=== PATIENT | female | born 1965 | race Caucasian/White ===

== ENCOUNTER 2016-05-05 14:47 | Inpatient (IN) | payer MEDICARE, OTHER ==
[~2016-05-05] VITALS: Ht 170.2 cm; Wt 93.0 kg
[2016-05-05 18:30] LABS: HEMOGLOBIN 8.4 gm/dl (12.3-15.3); RED BLOOD COUNT 3.04 M/UL (4.00-5.10); WHITE BLOOD COUNT 5.9 K/UL (4.5-11.0)
[2016-05-06] MEDS ORDERED: WELLBUTRIN SR150 M1 PO (06:17)
[2016-05-06] MEDS ORDERED: LATUDA80 MG PO (07:14)
[2016-05-06] MEDS ORDERED: LISINOPRIL20 MG PO (07:58)
[2016-05-06] MEDS ORDERED: ZOFRAN4 MG PO (07:58)
[2016-05-06] MEDS ORDERED: TRAZODONE HCL100 MG PO (07:58)
[2016-05-06] MEDS ORDERED: REQUIP1 MG PO (07:59)
[2016-05-06] MEDS ORDERED: COREG 3.125M3.125 MG PO (07:59)
[2016-05-06] MEDS ORDERED: ZANAFLEX 4 MG TA4 MG PO (08:00)
[2016-05-06] MEDS ORDERED: GLUCOPHAGE 500500 MG PO (08:01)
[2016-05-06] MEDS ORDERED: PROTONIX40 MG PO (08:01)
[2016-05-06] MEDS ORDERED: NEURONTIN 400400 MG PO (08:02)
[2016-05-06] MEDS ORDERED: OXYCODONE-ACET1 EACH PO (08:02)
[2016-05-06] MEDS ORDERED: RANEXA500 MG PO (08:02)
[2016-05-06] MEDS ORDERED: LEVEMIR100 UNIT/1 SQ (08:05)
[2016-05-06] MEDS ORDERED: HUMALOG100 UNIT/2 SQ (08:06)
[2016-05-06] MEDS ORDERED: ISORDIL TAB 3030 MG PO (08:07)
[2016-05-06] MEDS ORDERED: CRESTOR20 MG PO (08:07)
[2016-05-06] MEDS ORDERED: LOVENOX SYR150 MG/ML SQ (08:08)
[2016-05-07 10:21] LABS: HEMOGLOBIN 9.9 gm/dl (12.3-15.3)
[2016-05-07 18:29] LABS: HEMOGLOBIN 10.3 gm/dl (12.3-15.3)
[2016-05-08 05:59] LABS: HEMOGLOBIN 11.7 gm/dl (12.3-15.3); WHITE BLOOD COUNT 7.1 K/UL (4.5-11.0)
[2016-05-08 06:02] LABS: RED BLOOD COUNT 4.12 M/UL (4.00-5.10)
[2016-05-08] MEDS ORDERED: COLACE 100MG C100 MG PO (16:57)
[2016-05-08] MEDS ORDERED: IRON325 M1 PO (16:58)
[2016-05-08] MEDS ORDERED: NITROSTAT0.4 MG SL (16:59)
[2016-05-08] MEDS ORDERED: IMDUR ER TAB 6060 MG PO (17:00)
[2016-09-03] MEDS ORDERED: LEVEMIR100 UNIT/1 SQ (02:20)
[2016-09-03] MEDS ORDERED: HUMALOG100 UNIT/1 SQ (02:21)
[2016-09-03] MEDS ORDERED: XARELTO10 MG PO (02:21)
[2016-09-03] MEDS ORDERED: FOLIC ACID 1 MG1 MG PO (02:22)
[2016-09-03] MEDS ORDERED: VITAMIN B-121000 MCG PO (02:22)
[2016-09-03] MEDS ORDERED: NATURAL B-1001 EACH PO (02:23)
[2016-09-03] MEDS ORDERED: ALPRAZOLAM0.5 MG PO (02:24)
[2016-09-03] MEDS ORDERED: NOVOLOG 10100 UNITS/ SQ (02:34)
[2016-09-06] MEDS ORDERED: LEVAQUIN750 MG PO (19:21)
[2016-09-06] MEDS ORDERED: VANCOCIN 125MG/2.5ML IV ×2 (19:22→20:03)
[2016-09-06] MEDS ORDERED: HUMALOG100 UNIT/1 SQ (19:59)
[2016-11-08] MEDS ORDERED: ZOFRAN 4 MG TAB4 MG PO (10:24)
[2016-11-08] MEDS ORDERED: ZOLOFT100 MG PO (10:25)
[2016-11-08] MEDS ORDERED: ZANAFLEX4 MG PO (10:25)
[2016-11-08] MEDS ORDERED: POTASSIUM20 MEQ/11 JT (10:28)
[2016-11-10] MEDS ORDERED: IMDUR ER TAB 3030 MG PO (13:06)
[2016-12-04] MEDS ORDERED: BACTRIM DS TAB1 EACH PO (19:22)
== END 2016-05-08 18:05 | disposition home or self-care (01) | DRG 683 ==
LOC: ER1 14:47 → M/S 20:50 → ZEROF 20:50 → M/S 05-06 05:19
PROVIDERS: Emergency Medicine; Internal Medicine; Physician Assistant Medical; ADMIT Internal Medicine
PROC: 30233N1 Transfusion of Nonautologous Red Blood Cells into Peripheral Vein, Percutaneous Approach (ICD-10-PCS; principal; 2016-05-06)
DX: N17.9 Acute kidney failure, unspecified (principal); I50.30 Unspecified diastolic (congestive) heart failure; I25.10 Atherosclerotic heart disease of native coronary artery without angina pectoris; R07.89 Other chest pain; D50.9 Iron deficiency anemia, unspecified; E11.42 Type 2 diabetes mellitus with diabetic polyneuropathy; E11.65 Type 2 diabetes mellitus with hyperglycemia; E11.43 Type 2 diabetes mellitus with diabetic autonomic (poly)neuropathy; K31.84 Gastroparesis; I11.0 Hypertensive heart disease with heart failure; E87.5 Hyperkalemia; R00.1 Bradycardia, unspecified; E78.5 Hyperlipidemia, unspecified; G25.81 Restless legs syndrome; K21.9 Gastro-esophageal reflux disease without esophagitis; J45.909 Unspecified asthma, uncomplicated; G43.909 Migraine, unspecified, not intractable, without status migrainosus; E66.9 Obesity, unspecified; F60.3 Borderline personality disorder; F32.9 Major depressive disorder, single episode, unspecified; F41.9 Anxiety disorder, unspecified; Z95.5 Presence of coronary angioplasty implant and graft; Z86.711 Personal history of pulmonary embolism; Z86.718 Personal history of other venous thrombosis and embolism; Z86.14 Personal history of Methicillin resistant Staphylococcus aureus infection; Z86.73 Personal history of transient ischemic attack (TIA), and cerebral infarction without residual deficits; Z86.69 Personal history of other diseases of the nervous system and sense organs; Z68.32 Body mass index [BMI] 32.0-32.9, adult; Z79.01 Long term (current) use of anticoagulants; Z79.84 Long term (current) use of oral hypoglycemic drugs; Z79.4 Long term (current) use of insulin; Z79.891 Long term (current) use of opiate analgesic; Z88.3 Allergy status to other anti-infective agents; Z88.8 Allergy status to other drugs, medicaments and biological substances; Z79.899 Other long term (current) drug therapy; Z93.4 Other artificial openings of gastrointestinal tract status; Z90.710 Acquired absence of both cervix and uterus; Z90.49 Acquired absence of other specified parts of digestive tract; Z98.890 Other specified postprocedural states; Z82.49 Family history of ischemic heart disease and other diseases of the circulatory system
CPT/HCPCS: 36415; 71020; 80048; 80053; 80061; 80076; 82272; 82550; 82553; 82607; 82728; 82746; 82962; 83036; 83540; 83550; 83690; 83874; 83880; 84439; 84484; 85014; 85018; 85025; 85379; 85610; 85730; 86850; 86900; 86901; 86920; 93005; 96374; 99285; G0378; J1642; J1650; J1756; J2270; J7050; P9016